=== PATIENT | male | born 1980 | race Hispanic/Latino ===

== ENCOUNTER 2018-07-20 23:13 | Emergency (ER) | payer BC ==
[~2018-07-20] VITALS: Ht 167.6 cm; Wt 99.3 kg
[2018-07-20] MEDS ORDERED: CLINDAMYCIN PHOS 900MG/ 50ML 50 ML IV SCH (23:45)
--- NOTE | 2018-07-21 01:43 | Diagnostic Imaging Report ---
EXAMINATION: CT of the neck with contrast HISTORY: Left neck pain behind the left ear. COMPARISON: None TECHNIQUE: Multidetector helical axial images were obtained from the sternal notch through the skull base during intravenous infusion of iodinated contrast material. Images were reconstructed using soft tissue and bone algorithms and were viewed in multiplanar format. Intravenous contrast: 100 mg Isovue-300.. Dose modulation, iterative reconstruction, and/or weight based adjustment of the mA/kV was utilized to reduce the radiation dose to as low as reasonably achievable. FINDINGS: Mass: None. Nodes: Mildly prominent multiple bilateral supra and infrahyoid neck lymph nodes, however no necrotic, calcified, cystic or enhancing surgical lymphadenopathy is seen. Sinuses: Opacification of the right maxillary sinus, likely related to retention cysts. Otherwise clear. Oral cavity: Unremarkable. Salivary glands: Parotid and submandibular glands unremarkable. Pharynx: Unremarkable. Larynx: Unremarkable. Thyroid gland: Unremarkable. Upper esophagus: Unremarkable. Blood vessels: Unremarkable. Bones: Unremarkable. IMPRESSION: 1. No neck mass, cyst or fluid collections. 2. Mildly prominent, nonspecific, likely reactive cervical lymph nodes. Signed by: Dr. Chichi Avitia M.D. on 07/21/2018 1:40 AM
--- NOTE | 2018-07-21 02:05 | Diagnostic Imaging Report ---
EXAM: CT Chest, Abdomen and Pelvis WITH contrast INDICATION: Pain behind left ear. Lump in back of head and neck. COMPARISON: None. TECHNIQUE: Chest, abdomen and pelvis were scanned utilizing a multidetector helical scanner from the lung apex to the pubic symphysis after administration of IV contrast. Coronal and sagittal reformations were obtained. Routine protocol was performed. Scan was performed when during portal venous phase. IV CONTRAST: 100 mL of Isovue-370 ORAL CONTRAST: Water COMPLICATIONS: None RADIATION DOSE: Total DLP: 836.02 mGy*cm Estimated effective dose: (DLP x 0.015 x size factor) mSv Dose modulation, iterative reconstruction, and/or weight based adjustment of the mA/kV was utilized to reduce the radiation dose to as low as reasonably achievable. FINDINGS: LINES and TUBES: None. LUNGS AND AIRWAYS: Right lower lobe 4 mm nodule (series 3 image 97). Airways are normal. PLEURA: The pleural spaces are clear. HEART AND MEDIASTINUM: The thyroid gland is normal. No mediastinal, hilar or axillary lymphadenopathy. The heart is normal in size.. There is no pericardial effusion. HEPATOBILIARY: No focal hepatic lesions. No biliary ductal dilation. GALLBLADDER: No radio-opaque stones or sludge. No wall thickening. SPLEEN: No splenomegaly. PANCREAS: No focal masses or ductal dilatation. ADRENALS: No adrenal nodules KIDNEYS/URETERS: Kidneys enhance symmetrically. No hydronephrosis. No cystic or solid mass lesions. No stones. GI TRACT: No abnormal distention, wall thickening, or evidence of bowel obstruction. Appendix is normal. PELVIC ORGANS/BLADDER: Unremarkable. LYMPH NODES: No lymphadenopathy. VESSELS: Unremarkable. PERITONEUM / RETROPERITONEUM: No free air or fluid. BONES: There are degenerative changes in the lumbar spine. SOFT TISSUES: Unremarkable. IMPRESSION: No acute abnormalities in the chest, abdomen, or pelvis. Signed by: DR. Jerod Raymundo MD on 07/21/2018 2:02 AM
[2018-07-21 06:50] VITALS: BP 154/88
== END 2018-07-21 02:20 | disposition home or self-care (01) ==
LOC: FSED 23:13
DX: L04.0 Acute lymphadenitis of face, head and neck (principal)
CPT/HCPCS: 70491; 71260; 74177; 80053; 85025; 99283

== ENCOUNTER → 2018-08-03 | Day surgery (SDC) | payer BC ==
[~2018-08-03] MED LIST: FENTANYL CITRATE/PF 100MCG/2 ML INJ ONE; GLUCAGON FOR INJ 1 MG VIAL ONE; HYOSCYAMINE SULFATE 0.5 MG/ML INJ ONE; KETAMINE HCL INJ 50 MG/ML 10 ML VIAL ONE; MIDAZOLAM HCL 2 MG/2 ML VIAL ONE; PROPOFOL IV EMULSION 10 MG/ML 50 ML VIAL ONE
--- OUTSIDE RECORDS SUMMARY | 2018-08-03 06:28 | XMS REPORT ---
Author Author 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 Allergies, Adverse Reactions, Alerts Allergy Name Allergy Type Status Severity Reaction(s) Onset Date Inactive Date Treating Clinician Comments No Known Allergies DA Active U 2018-07-21 00:00:00 No Known Allergies DA Active U 2013-11-19 00:00:00 Medications This patient has no known medications. Results Test Description Test Time Test Comments Text Results Atomic Results Result Comments PROCALCITONIN (PCT) 2018-07-24 11:20:00 PROCALCITONIN (PCT) (test code=PROCAL) < 0.05 ng/mL 0.00-0.05 PROCALCITONIN (PCT) NORMAL RANGE (ADULT): <0.05 NG/ML. * a concentration <0.5 ng/mL represents a low risk of severe sepsis and/or septic shock.* a concentration >2 ng/mL represents a high risk of severe sepsis and/or septic shock.Nevertheless, concentrations <0.5 ng/mL do not exclude aninfection, on account of localized infections (withoutsystemic signs) which can be associated with such lowconcentrations, or a systemic infection in its initialstages (< 6 hours). Furthermore, increased procalcitonincan occur without infection. PCT concentrations between 0.5and 2.0 ng/mL should be interpreted taking into account thepatient's history. It is recommended to retest PCT within6-24 hours if any concentrations <2 ng/mL are obtained. CBC W/AUTO [id number] 08:53:00* Test Item Value Reference Range Comments WHITE BLOOD CELL (test code=WBC) 14.68 x10 3/uL 4.5-11.0 RED BLOOD CELL (test code=RBC) 4.81 x10 6/uL 4.00-5.60 HEMOGLOBIN (test code=HGB) 13.2 g/dL 12.5-16.9 HEMATOCRIT (test code=HCT) 39.0 % 37.5-50.7 MEAN CELL VOLUME (test code=MCV) 81.1 fL 81.0-99.0 MEAN CELL HGB (test code=MCH) 27.4 pg 27.0-33.0 MEAN CELL HGB CONCETRATION (test code=MCHC) 33.8 g/dL 33.0-37.0 RED CELL DISTRIBUTION WIDTH CV (test code=RDW) 12.6 % 11.5-14.5 RED CELL DISTRIBUTION WIDTH SD (test code=RDW-SD) 37.4 fL 37.0-54.0 PLATELET COUNT (test code=PLT) 321 x10 3/uL 150-400 MEAN PLATELET VOLUME (test code=MPV) 10.8 fL 7.0-9.0 NEUTROPHIL % (test code=NT%) 79.3 % 56.0-77.0 IMMATURE GRANULOCYTE % (test code=IG%) 1.0 % 0.0-2.0 LYMPHOCYTE % (test code=LY%) 10.1 % 14.0-32.0 MONOCYTE % (test code=MO%) 9.3 % 4.8-9.0 EOSINOPHIL % (test code=EO%) 0.1 % 0.3-3.7 BASOPHIL % (test code=BA%) 0.2 % 0.0-2.0 NUCLEATED RBC % (test code=NRBC%) 0.0 % 0-0 NEUTROPHIL # (test code=NT#) 11.65 x10 3/uL 2.0-7.6 IMMATURE GRANULOCYTE # (test code=IG#) 0.14 x10 3/uL 0.00-0.03 LYMPHOCYTE # (test code=LY#) 1.49 x10 3/uL 1.0-3.8 MONOCYTE # (test code=MO#) 1.36 x10 3/uL 0.1-0.8 EOSINOPHIL # (test code=EO#) 0.01 x10 3/uL 0.0-0.2 BASOPHIL # (test code=BA#) 0.03 x10 3/uL 0.0-0.2 NUCLEATED RBC # (test code=NRBC#) 0.00 x10 3/uL 0.0-0.1 MANUAL DIFF REQUIRED (test code=MDIFF) NO BASIC METABOLIC [id number] 07:57:00* Test Item Value Reference Range Comments SODIUM (test code=NA) 139 mEq/L 134-147 POTASSIUM (test code=K) 3.8 mEq/L 3.4-5.0 CHLORIDE (test code=CL) 110 mEq/L 100-108 CARBON DIOXIDE (test code=CO2) 20 mEq/L 21-33 ANION GAP (test code=GAP) 13 0-20 GLUCOSE (test code=GLU) 127 mg/dL 70-110 BLOOD UREA NITROGEN (test code=BUN) 13 mg/dL 7-18 GLOMERULAR FILTRATION RATE (test code=GFR) 126.2 105-110 Units of measure=ml/min/1.73 m2 CREATININE (test code=CREAT) 0.7 mg/dL 0.6-1.3 CALCIUM (test code=CA) 8.3 mg/dL 8.0-10.5 PROCALCITONIN (PCT)2018-07-23 09:41:00* Test Item Value Reference Range Comments PROCALCITONIN (PCT) (test code=PROCAL) < 0.05 ng/mL 0.00-0.05 PROCALCITONIN (PCT) NORMAL RANGE (ADULT): <0.05 NG/ML. * a concentration <0.5 ng/mL represents a low risk of severe sepsis and/or septic shock.* a concentration >2 ng/mL represents a high risk of severe sepsis and/or septic shock.Nevertheless, concentrations <0.5 ng/mL do not exclude aninfection, on account of localized infections (withoutsystemic signs) which can be associated with such lowconcentrations, or a systemic infection in its initialstages (< 6 hours). Furthermore, increased procalcitonincan occur without infection. PCT concentrations between 0.5and 2.0 ng/mL should be interpreted taking into account thepatient's history. It is recommended to retest PCT within6-24 hours if any concentrations <2 ng/mL are obtained. COMPREHENSIVE METABOLIC [id number] 06:52:00* Test Item Value Reference Range Comments SODIUM (test code=NA) 138 mEq/L 134-147 POTASSIUM (test code=K) 4.1 mEq/L 3.4-5.0 CHLORIDE (test code=CL) 108 mEq/L 100-108 CARBON DIOXIDE (test code=CO2) 24 mEq/L 21-33 ANION GAP (test code=GAP) 10 0-20 GLUCOSE (test code=GLU) 166 mg/dL 70-110 BLOOD UREA NITROGEN (test code=BUN) 11 mg/dL 7-18 GLOMERULAR FILTRATION RATE (test code=GFR) 94.4 105-110 Units of measure=ml/min/1.73 m2 CREATININE (test code=CREAT) 0.9 mg/dL 0.6-1.3 TOTAL PROTEIN (test code=PROT) 7.7 g/dL 6.4-8.2 ALBUMIN (test code=ALB) 3.80 g/dL 3.4-5.0 CALCIUM (test code=CA) 8.8 mg/dL 8.0-10.5 BILIRUBIN TOTAL (test code=BILT) 0.50 mg/dL 0.0-1.0 SGOT/AST (test code=AST) 17 IUnit/L 15-37 SGPT/ALT (test code=ALT) 20 IUnit/L 15-65 ALKALINE PHOSPHATASE TOTAL (test code=ALKP) 93 IUnit/L 20-125 LIPID PROFILE (CORONARY RISK)2018-07-23 06:52:00* Test Item Value Reference Range Comments TRIGLYCERIDES (test code=TRIG) 73 mg/dL 40-150 CHOLESTEROL (test code=CHOL) 173 mg/dL <200 CHOLESTEROL/HDL RATIO (test code=CHOLHDL) 3.04 RATIO 3.43-4.97 RISK ASSOCIATED WITH CHOL/HDL RATIOS: RISK MALE FEMALE1/2 AVERAGE 3.43 3.27AVERAGE 4.97 4.442X AVERAGE 9.55 7.053X AVERAGE 23.39 11.04 NOTE THAT THE REFERENCE VALUE IS RELATEDTO RISK LEVELS RECOMMENDED BY THE NATL.HEART, LUNG, AND BLOOD INST. HDL CHOLESTEROL (test code=HDL) 57.0 mg/dL 32-72 LIPOPROTEIN LDL (test code=LDL) 95 mg/dL 0-100 <100 [id number] NEAR OPTIMAL/ABOVE [id number] HIGH>MO=567 VERY HIGH*Guidelines provided by the National Cholesterol EducationProgram Adult Treatment Panel III [id number] 06:52:00* Test Item Value Reference Range Comments MAGNESIUM (test code=MAG) 2.00 mg/dL 1.8-2.4 PROTHROMBIN [id number] 05:53:00* Test Item Value Reference Range Comments PROTHROMBIN TIME PATIENT (test code=PTP) 13.0 SECONDS 9.3-12.9 INTERNATIONAL NORMAL RATIO (test code=INR) 1.2 0.8-1.2 TARGET INR BY INDICATION Indication INR1. Prophylaxis of venous thrombosis 2.0 - 3.0 (orthopedic surgery), Prophylaxis of venous thrombosis (other than high-risk surgery), Treatment of Deep Vein Thrombosis/Pulmonary Embolism, Prevention of systemic embolism - Tissue heart valves, Acute Myocardial Infarction (to prevent systemic embolism), Valvular heart disease, Atrial Fibrillation, Bileaflet mechanical valve in aortic position.2. Mechanical prosthetic valves (high risk), 2.5 - 3.5 Presence of Lupus Anticoagulant or Antiphospholipid Antibodies, Prevention of systemic embolism - Acute Myocardial Infarction (to prevent recurrent infarct). CBC W/AUTO [id number] 05:52:00* Test Item Value Reference Range Comments WHITE BLOOD CELL (test code=WBC) 8.85 x10 3/uL 4.5-11.0 RED BLOOD CELL (test code=RBC) 5.00 x10 6/uL 4.00-5.60 HEMOGLOBIN (test code=HGB) 13.9 g/dL 12.5-16.9 HEMATOCRIT (test code=HCT) 42.3 % 37.5-50.7 MEAN CELL VOLUME (test code=MCV) 84.6 fL 81.0-99.0 MEAN CELL HGB (test code=MCH) 27.8 pg 27.0-33.0 MEAN CELL HGB CONCETRATION (test code=MCHC) 32.9 g/dL 33.0-37.0 RED CELL DISTRIBUTION WIDTH CV (test code=RDW) 13.0 % 11.5-14.5 RED CELL DISTRIBUTION WIDTH SD (test code=RDW-SD) 39.8 fL 37.0-54.0 PLATELET COUNT (test code=PLT) 248 x10 3/uL 150-400 MEAN PLATELET VOLUME (test code=MPV) 10.3 fL 7.0-9.0 NEUTROPHIL % (test code=NT%) 86.7 % 56.0-77.0 IMMATURE GRANULOCYTE % (test code=IG%) 1.2 % 0.0-2.0 LYMPHOCYTE % (test code=LY%) 9.5 % 14.0-32.0 MONOCYTE % (test code=MO%) 2.4 % 4.8-9.0 EOSINOPHIL % (test code=EO%) 0.1 % 0.3-3.7 BASOPHIL % (test code=BA%) 0.1 % 0.0-2.0 NUCLEATED RBC % (test code=NRBC%) 0.0 % 0-0 NEUTROPHIL # (test code=NT#) 7.67 x10 3/uL 2.0-7.6 IMMATURE GRANULOCYTE # (test code=IG#) 0.11 x10 3/uL 0.00-0.03 LYMPHOCYTE # (test code=LY#) 0.84 x10 3/uL 1.0-3.8 MONOCYTE # (test code=MO#) 0.21 x10 3/uL 0.1-0.8 EOSINOPHIL # (test code=EO#) 0.01 x10 3/uL 0.0-0.2 BASOPHIL # (test code=BA#) 0.01 x10 3/uL 0.0-0.2 NUCLEATED RBC # (test code=NRBC#) 0.00 x10 3/uL 0.0-0.1 MANUAL DIFF REQUIRED (test code=MDIFF) NO PROCALCITONIN (PCT)2018-07-22 18:08:00* Test Item Value Reference Range Comments PROCALCITONIN (PCT) (test code=PROCAL) < 0.05 ng/mL 0.00-0.05 PROCALCITONIN (PCT) NORMAL RANGE (ADULT): <0.05 NG/ML. * a concentration <0.5 ng/mL represents a low risk of severe sepsis and/or septic shock.* a concentration >2 ng/mL represents a high risk of severe sepsis and/or septic shock.Nevertheless, concentrations <0.5 ng/mL do not exclude aninfection, on account of localized infections (withoutsystemic signs) which can be associated with such lowconcentrations, or a systemic infection in its initialstages (< 6 hours). Furthermore, increased procalcitonincan occur without infection. PCT concentrations between 0.5and 2.0 ng/mL should be interpreted taking into account thepatient's history. It is recommended to retest PCT within6-24 hours if any concentrations <2 ng/mL are obtained. HGBA1C%2018-07-22 15:24:00* Test Item Value Reference Range Comments HGBA1C% (test code=HGBA1C%) 5.7 %A1C 4.8-6.0 T4 [id number] 15:11:00* Test Item Value Reference Range Comments T4 FREE (test code=T4F) 1.0 ng/dL 0.77-1.61 THYROID STIMULATING [id number] 15:11:00* Test Item Value Reference Range Comments THYROID STIMULATING HORMONE (test code=TSH) 3.38 0.42-5.47 Results in zen-International Units/mL COMPREHENSIVE METABOLIC [id number] 15:00:00* Test Item Value Reference Range Comments SODIUM (test code=NA) 137 mEq/L 134-147 POTASSIUM (test code=K) 3.8 mEq/L 3.4-5.0 CHLORIDE (test code=CL) 104 mEq/L 100-108 CARBON DIOXIDE (test code=CO2) 29 mEq/L 21-33 ANION GAP (test code=GAP) 8 0-20 GLUCOSE (test code=GLU) 120 mg/dL 70-110 BLOOD UREA NITROGEN (test code=BUN) 10 mg/dL 7-18 GLOMERULAR FILTRATION RATE (test code=GFR) 108.2 105-110 Units of measure=ml/min/1.73 m2 CREATININE (test code=CREAT) 0.8 mg/dL 0.6-1.3 TOTAL PROTEIN (test code=PROT) 7.3 g/dL 6.4-8.2 ALBUMIN (test code=ALB) 3.70 g/dL 3.4-5.0 CALCIUM (test code=CA) 8.4 mg/dL 8.0-10.5 BILIRUBIN TOTAL (test code=BILT) 0.60 mg/dL 0.0-1.0 SGOT/AST (test code=AST) 13 IUnit/L 15-37 SGPT/ALT (test code=ALT) 22 IUnit/L 15-65 ALKALINE PHOSPHATASE TOTAL (test code=ALKP) 93 IUnit/L 20-125 COMPREHENSIVE METABOLIC [id number] 14:58:00* Test Item Value Reference Range Comments SODIUM (test code=NA) 137 mEq/L 134-147 POTASSIUM (test code=K) 3.8 mEq/L 3.4-5.0 CHLORIDE (test code=CL) 104 mEq/L 100-108 CARBON DIOXIDE (test code=CO2) 29 mEq/L 21-33 ANION GAP (test code=GAP) 8 0-20 GLUCOSE (test code=GLU) 120 mg/dL 70-110 BLOOD UREA NITROGEN (test code=BUN) 10 mg/dL 7-18 GLOMERULAR FILTRATION RATE (test code=GFR) 108.2 105-110 Units of measure=ml/min/1.73 m2 CREATININE (test code=CREAT) 0.8 mg/dL 0.6-1.3 TOTAL PROTEIN (test code=PROT) g/dL 6.4-8.2 ALBUMIN (test code=ALB) 3.70 g/dL 3.4-5.0 CALCIUM (test code=CA) 8.4 mg/dL 8.0-10.5 BILIRUBIN TOTAL (test code=BILT) mg/dL 0.0-1.0 SGOT/AST (test code=AST) 13 IUnit/L 15-37 SGPT/ALT (test code=ALT) 22 IUnit/L 15-65 ALKALINE PHOSPHATASE TOTAL (test code=ALKP) IUnit/L 20-125 CBC W/AUTO [id number] 14:49:00* Test Item Value Reference Range Comments WHITE BLOOD CELL (test code=WBC) 9.16 x10 3/uL 4.5-11.0 RED BLOOD CELL (test code=RBC) 5.25 x10 6/uL 4.00-5.60 HEMOGLOBIN (test code=HGB) 14.4 g/dL 12.5-16.9 HEMATOCRIT (test code=HCT) 43.2 % 37.5-50.7 MEAN CELL VOLUME (test code=MCV) 82.3 fL 81.0-99.0 MEAN CELL HGB (test code=MCH) 27.4 pg 27.0-33.0 MEAN CELL HGB CONCETRATION (test code=MCHC) 33.3 g/dL 33.0-37.0 RED CELL DISTRIBUTION WIDTH CV (test code=RDW) 12.7 % 11.5-14.5 RED CELL DISTRIBUTION WIDTH SD (test code=RDW-SD) 38.5 fL 37.0-54.0 PLATELET COUNT (test code=PLT) 234 x10 3/uL 150-400 MEAN PLATELET VOLUME (test code=MPV) 10.2 fL 7.0-9.0 NEUTROPHIL % (test code=NT%) 76.1 % 56.0-77.0 IMMATURE GRANULOCYTE % (test code=IG%) 0.5 % 0.0-2.0 LYMPHOCYTE % (test code=LY%) 10.7 % 14.0-32.0 MONOCYTE % (test code=MO%) 12.4 % 4.8-9.0 EOSINOPHIL % (test code=EO%) 0.1 % 0.3-3.7 BASOPHIL % (test code=BA%) 0.2 % 0.0-2.0 NUCLEATED RBC % (test code=NRBC%) 0.0 % 0-0 NEUTROPHIL # (test code=NT#) 6.96 x10 3/uL 2.0-7.6 IMMATURE GRANULOCYTE # (test code=IG#) 0.05 x10 3/uL 0.00-0.03 LYMPHOCYTE # (test code=LY#) 0.98 x10 3/uL 1.0-3.8 MONOCYTE # (test code=MO#) 1.14 x10 3/uL 0.1-0.8 EOSINOPHIL # (test code=EO#) 0.01 x10 3/uL 0.0-0.2 BASOPHIL # (test code=BA#) 0.02 x10 3/uL 0.0-0.2 NUCLEATED RBC # (test code=NRBC#) 0.00 x10 3/uL 0.0-0.1 MANUAL DIFF REQUIRED (test code=MDIFF) NO - CT NECK [id number] 14:08:00 Name: JERICHO HOLLAND III [facility] : 1980 Age/S: 38 / M [address] [place] [address] Unit #: [id number] Loc: [place] [address] Phys: Faith Juárez [employer]OR [employer]CH[employer]IC Acct: [id number] Dis Date: Status: REG ER PHONE #: [phone] Exam Date: 07/21/2018 1354 FAX #: [phone] Reason: L PAROTID GLAND SWELLING/PAIN EXAMS: CPT CODE: [id number] CT NECK W/CONTRAST 09658 Clinical Indication: Left parotid swelling. Comparison: None Technique: CT of the neck is performed with a multidetector CT. Axial, coronal and sagittal reconstructions were obtained. CONTRAST: 100 cc of IV Omnipaque 300 contrast material was used for the exam. CT Radiation Dose DLP: 343 mGy-cm. DLP means Dose Length Product, a radiation dose metric that does not report individual patient dose, but is a reference value related to the radiation output of the scanner used for this exam. FINDINGS: SOFT TISSUES: Mild asymmetric skin thickening and swelling of the left periauricular soft tissues, inferior left outer ear, without wall fluid collection. The right and left external auditory canal are unremarkable. LYMPH NODES: Increased number of small lymph nodes in the lateral neck, without necrosis or obliteration. AERODIGESTIVE TRACT: The nasopharynx and oropharynx are clear. The vocal cords, supraglottic and infraglottic airway is unremarkable. The parapharyngeal space, and retropharyngeal space are normal. The valleculae and piriform sinuses are symmetric. The epiglottis and uvula are normal. SALIVARY GLANDS: The submandibular and parotid glands are symmetric in size. The parotid gland contains small intrapar otid lymph nodes THYROID GLANDS: The thyroid lobes are symmetric a nd there are no lesions. VASCULAR STRUCTURES: The jugular v eins and carotid vessels are unremarkable. OSSEOUS STRUCTUR ES: There are no acute fractures or dislocations. PAGE 1 Signed Report (CONTINUED) Name: JERICHO HOLLAND III [facility] : 1980 e/S: 38 / M [address] [place] [address] Unit #: [id number] Loc: [place] [address] Phys: Faith Juárez Acct: [id number] Dis Date: Status: REG ER PHONE #: [phone] Exam Date: 07/21/2018 1354 FAX #: [phone] Reason: L PAROTID GLAND SWELLING/PAIN EXAMS: CPT CODE: [id number] CT NECK W/CONTRAST 50241 <Continued> VISUALIZED LUNG APICES: There are no pulmonary masses or consolidation. PARANASAL SINUSES AND MASTOID AIR cells: Mucosal retention cyst in the right maxillary sinus. No significant mucosal thickening or fluid level. Clear mastoid air cells. If there is further concern for neck masses or malignancy, PET/CT imaging or MRI of the neck should be performed for complete assessment. IMPRESSION: 1. Swelling and thickening of the left the left periauricular soft tissues and outer ear, possibly infectious/cellulitis. 2. No soft tissue abscess, or abnormal enlargement of the parotid gland to suggest parotiditis. 3. Increased number of small lymph nodes in the right and left lateral neck is nonspecific SL: [id number] at 1408 Reported and signed by: Sonny Mixon M.D. CC: Faith Juárez Technologist:Sandra Nunez RT(R)(CT) CTDI: DLP: Trnscb Date/Time: 07/21/2018 (0455) [id number] Orig Print D/T: S: 07/21/2018 (2344) CTDI: DLP: PAGE 2 Signed Report - XR CHEST 1 [id number] 14:03:00 FAX: Faith Juárez [phone] [place]: St: REG Name: Adi MARTELJERICHO ROMMEL [facility] : [birth year] Age/S: 38/M [address] [place] [address] Unit #: [id number] Loc: [place] [address] Phys: Faith Juárez Acct: [id number] Dis Date: Status: REG ER PHONE #: [phone] Exam Date: 07/21/2018 1351 FAX #: [phone] Reason: SEPSIS PROTOCOL EXAMS: CPT CODE: [id number] XR CHEST 1 V 70684 1 PA VIEW CXR HISTORY: Sepsis protocol. Left neck and ear swelling. COMPARISON: 11/19/2013 chest x-ray. The lungs are clear with normal pulmonary vasculature. Cardiomediastinal silhouette normal. No pleural abnormali ty. Bony thorax intact. IMPRESSION: Nor mal exam. END OF IMPRESSION SL: [id number] Electronically Signed by Abdon Wells on at 1403 Reported and signed by: Yandel Wells M.D. CC: Faith Juárez Technologist: DAMIAN Kruse(R) Trnscrd Date/Time/By: 07/21/2018 (2763) : By: NurysRTB Orig Print D/T: S: 07/21/2018 (5991) PAGE 1 Signed Report PROCALCITONIN (PCT)2018-07-21 13:57:00* Test Item Value Reference Range Comments PROCALCITONIN (PCT) (test code=PROCAL) < 0.05 ng/mL 0.00-0.05 PROCALCITONIN (PCT) NORMAL RANGE (ADULT): <0.05 NG/ML. * a concentration <0.5 ng/mL represents a low risk of severe sepsis and/or septic shock.* a concentration >2 ng/mL represents a high risk of severe sepsis and/or septic shock.Nevertheless, concentrations <0.5 ng/mL do not exclude aninfection, on account of localized infections (withoutsystemic signs) which can be associated with such lowconcentrations, or a systemic infection in its initialstages (< 6 hours). Furthermore, increased procalcitonincan occur without infection. PCT concentrations between 0.5and 2.0 ng/mL should be interpreted taking into account thepatient's history. It is recommended to retest PCT within6-24 hours if any concentrations <2 ng/mL are obtained. COMPREHENSIVE METABOLIC [id number] 13:47:00* Test Item Value Reference Range Comments SODIUM (test code=NA) 137 mEq/L 134-147 POTASSIUM (test code=K) 3.5 mEq/L 3.4-5.0 CHLORIDE (test code=CL) 104 mEq/L 100-108 CARBON DIOXIDE (test code=CO2) 25 mEq/L 21-33 ANION GAP (test code=GAP) 12 0-20 GLUCOSE (test code=GLU) 103 mg/dL 70-110 BLOOD UREA NITROGEN (test code=BUN) 9 mg/dL 7-18 GLOMERULAR FILTRATION RATE (test code=GFR) 83.6 105-110 Units of measure=ml/min/1.73 m2 CREATININE (test code=CREAT) 1.0 mg/dL 0.6-1.3 TOTAL PROTEIN (test code=PROT) 7.6 g/dL 6.4-8.2 ALBUMIN (test code=ALB) 4.00 g/dL 3.4-5.0 CALCIUM (test code=CA) 8.5 mg/dL 8.0-10.5 BILIRUBIN TOTAL (test code=BILT) 0.60 mg/dL 0.0-1.0 SGOT/AST (test code=AST) 12 IUnit/L 15-37 SGPT/ALT (test code=ALT) 23 IUnit/L 15-65 ALKALINE PHOSPHATASE TOTAL (test code=ALKP) 95 IUnit/L 20-125 BILIRUBIN [id number] 13:47:00* Test Item Value Reference Range Comments BILIRUBIN DIRECT (test code=BILD) 0.20 MG/DL 0.0-0.30 [id number] 13:47:00* Test Item Value Reference Range Comments TROPONIN-I (test code=TROPI) < 0.015 ng/mL 0.000-0.045 Negative: <=0.045 Positive: >=0.046 Correlation with serial results, other cardiac markers andclinical findings is necessary to determine the clinicalsignificance of this result. Results using different methodologies should not be comparedto one another as quantitative results may vary by method. URINALYSIS [id number] 13:26:00* Test Item Value Reference Range Comments UA COLOR (test code=COLU) YELLOW YEL/STRAW UA APPEARANCE (test code=APPU) CLEAR CLEAR UA GLUCOSE DIPSTICK (test code=DGLUU) NEGATIVE NEGATIVE UA BILIRUBIN DIPSTICK (test code=BILU) NEGATIVE NEGATIVE UA KETONE DIPSTICK (test code=KETU) NEGATIVE NEGATIVE UA SPECIFIC GRAVITY (test code=SGU) 1.025 1.005-1.030 UA BLOOD DIPSTICK (test code=MACRINA) 2+ NEGATIVE UA PH DIPSTICK (test code=KOBE) 5.0 5.0-7.0 UA PROTEIN DIPSTICK (test code=PROU) NEGATIVE NEGATIVE UA UROBILINIOGEN DIPSTICK (test code=URO) 0.2 mg/dL 0.2-1.0 UA NITRITE DIPSTICK (test code=KATTY) NEGATIVE NEGATIVE UA LEUKOCYTE ESTERASE DIPSTICK (test code=LEUU) NEGATIVE NEGATIVE UA WBC (test code=WBCU) 0-3 WBC/HPF 0-3 UA RBC (test code=RBCU) 0-3 RBC/HPF 0-3 UA BACTERIA (test code=BACU) NONE SEEN /HPF NONE SEEN UA SQUAMOUS CELLS (test code=SQU) 0-5 /HPF NONE SEEN UA MUCUS (test code=MUCU) 2+ /LPF NONE SEEN COMMENTS: Clean CatchUA CULT [id number] 13:26:00* Test Item Value Reference Range Comments UA CULTURE NEEDED? (test code=UACULT) NO, WBC<10 Criteria Culture Chk Criteria not met, Urine Culture cancelled. COMMENTS: Clean CatchCBC W/AUTO [id number] 13:24:00* Test Item Value Reference Range Comments WHITE BLOOD CELL (test code=WBC) 9.05 x10 3/uL 4.5-11.0 RED BLOOD CELL (test code=RBC) 5.19 x10 6/uL 4.00-5.60 HEMOGLOBIN (test code=HGB) 14.5 g/dL 12.5-16.9 HEMATOCRIT (test code=HCT) 43.5 % 37.5-50.7 MEAN CELL VOLUME (test code=MCV) 83.8 fL 81.0-99.0 MEAN CELL HGB (test code=MCH) 27.9 pg 27.0-33.0 MEAN CELL HGB CONCETRATION (test code=MCHC) 33.3 g/dL 33.0-37.0 RED CELL DISTRIBUTION WIDTH CV (test code=RDW) 12.7 % 11.5-14.5 RED CELL DISTRIBUTION WIDTH SD (test code=RDW-SD) 38.5 fL 37.0-54.0 PLATELET COUNT (test code=PLT) 241 x10 3/uL 150-400 MEAN PLATELET VOLUME (test code=MPV) 9.9 fL 7.0-9.0 NEUTROPHIL % (test code=NT%) 82.5 % 56.0-77.0 IMMATURE GRANULOCYTE % (test code=IG%) 0.3 % 0.0-2.0 LYMPHOCYTE % (test code=LY%) 8.4 % 14.0-32.0 MONOCYTE % (test code=MO%) 8.6 % 4.8-9.0 EOSINOPHIL % (test code=EO%) 0.1 % 0.3-3.7 BASOPHIL % (test code=BA%) 0.1 % 0.0-2.0 NUCLEATED RBC % (test code=NRBC%) 0.0 % 0-0 NEUTROPHIL # (test code=NT#) 7.46 x10 3/uL 2.0-7.6 IMMATURE GRANULOCYTE # (test code=IG#) 0.03 x10 3/uL 0.00-0.03 LYMPHOCYTE # (test code=LY#) 0.76 x10 3/uL 1.0-3.8 MONOCYTE # (test code=MO#) 0.78 x10 3/uL 0.1-0.8 EOSINOPHIL # (test code=EO#) 0.01 x10 3/uL 0.0-0.2 BASOPHIL # (test code=BA#) 0.01 x10 3/uL 0.0-0.2 NUCLEATED RBC # (test code=NRBC#) 0.00 x10 3/uL 0.0-0.1 MANUAL DIFF REQUIRED (test code=MDIFF) NO LACTIC ACID [id number] 13:09:00* Test Item Value Reference Range Comments LACTIC ACID POC (test code=LACTP) 1.3 MMOL/L 0.90-1.70 Performed by certified steam conditioning operator at [facility] Ctr CT ABD/PEL WITH [id number] 01:55:00 [place] [id number] Patient Name: JERICHO HOLLAND III MR #: [id number] : 1980 Age/Sex: 38/M Req #: [id number] Adm Physician: Ordered by: NICOLE OGDEN MD Report #: [id number] Location: [facility] Room/Bed: Procedure: 0330-001 0 HOPD/CT ABD/PEL WITH CONTRAST-HOPD Exam Date: 07/21/18 Exam Time: 0100 REPORT STATUS: Signed EXAM: CT Chest, Abdomen and Pelvis WITH contrast INDICATION: Pain behind left ear. Lump in back of head and neck. COMPARISON: None. TECH NIQUE: Chest, abdomen and pelvis were scanned utilizing a multidetector helica l scanner from the lung apex to the pubic symphysis after administration of IV contrast. Coronal and sagittal reformations were obtained. Routine protocol w as performed. Scan was performed when during portal venous phase. IV CONT RAST: 100 mL of Isovue-370 ORAL CONTRAST: Water COMPLICA TIONS: None RADIATION DOSE: Total DLP: 836.02 mGy*cm Estimate d effective dose: (DLP x 0.015 x size factor) mSv Dose modulation, iterat humberto reconstruction, and/or weight based adjustment of the mA/kV was utilized t o reduce the radiation dose to as low as reasonably achievable. FINDINGS : LINES and TUBES: None. LUNGS AND AIRWAYS: Right lower lobe 4 mm nod ule (series 3 image 97). Airways are normal. PLEURA: The pleural spaces are clear. HEART AND MEDIASTINUM: The thyroid gland is normal. No mediasti nal, hilar or axillary lymphadenopathy. The heart is normal in size.. There i s no pericardial effusion. HEPATOBILIARY: No focal hepatic lesi ons. No biliary ductal dilation. GALLBLADDER: No radio-opaque stones or s ludge. No wall thickening. SPLEEN: No splenomegaly. PANCREAS: No foc al masses or ductal dilatation. ADRENALS: No adrenal nodules KID NEYS/URETERS: Kidneys enhance symmetrically. No hydronephrosis. No cystic or solid mass lesions. No stones. GI TRACT: No abnormal distention, wall thic kening, or evidence of bowel obstruction. Appendix is normal. PELVI C ORGANS/BLADDER: Unremarkable. LYMPH NODES: No lymphadenopathy. VESSE LS: Unremarkable. PERITONEUM / RETROPERITONEUM: No free air or fluid. BONES: There are degenerative changes in the lumbar spine. SOFT TISSUES: Un remarkable. IMPRESSION: No acute abnormalities in the chest, abdomen, or pelvis. Signed by: DR. Jerod Ferris MD on 07/21/2018 2:02 AM Dictated By: JEROD FERRIS MD 1 Transcribed By: TAMIKA on 07/21/18201 COPY TO: NICOLE ARAGON MD CT CHEST WITH [id number] 01:55:00 [place] [id number] Patient Name: JERICHO HOLLAND III MR #: [id number] : 1980 Age/Sex: 38/M Req #: [id number] Adm Physician: Ordered by: NICOLE OGDEN MD Report #: [id number] Location: [facility] Room/Bed: Procedure: 0330-001 2 HOPD/CT CHEST WITH CONTRAST-HOPD Exam Date: 07/21/18 Exam Time: 0100 REPORT STATUS: S igned EXAM: CT Chest, Abdomen and Pelvis WITH contrast INDICATION: Pain b ehind left ear. Lump in back of head and neck. COMPARISON: None. TECHNI QUE: Chest, abdomen and pelvis were scanned utilizing a multidetector helical scanner from the lung apex to the pubic symphysis after administration of IV c ontrast. Coronal and sagittal reformations were obtained. Routine protocol was performed. Scan was performed when during portal venous phase. IV CONTRA ST: 100 mL of Isovue-370 ORAL CONTRAST: Water COMPLICATI ONS: None RADIATION DOSE: Total DLP: 836.02 mGy*cm Estimated effective dose: (DLP x 0.015 x size factor) mSv Dose modulation, iterativ e reconstruction, and/or weight based adjustment of the mA/kV was utilized to reduce the radiation dose to as low as reasonably achievable. FINDINGS: LINES and TUBES: None. LUNGS AND AIRWAYS: Right lower lobe 4 mm nodule (series 3 image 97). Airways are normal. PLEURA: The pleural spaces are clear. HEART AND MEDIASTINUM: The thyroid gland is normal. No mediastinal, hilar or axillary lymphadenopathy. The heart is normal in size.. There is no pericardial effusion. HEPATOBILIARY: No focal hepatic lesions. No biliary ductal dilation. GALLBLADDER: No radio-opaque stones or sludge. No wall thickening. SPLEEN: No splenomegaly. PANCREAS: No focal masses or ductal dilatation. ADRENALS: No adrenal nodules KIDNE YS/URETERS: Kidneys enhance symmetrically. No hydronephrosis. No cystic or so lid mass lesions. No stones. GI TRACT: No abnormal distention, wall thicke abbey, or evidence of bowel obstruction. Appendix is normal. PELVIC ORGANS/BLADDER: Unremarkable. LYMPH NODES: No lymphadenopathy. VESSELS : Unremarkable. PERITONEUM / RETROPERITONEUM: No free air or fluid. CLYDE PATT: There are degenerative changes in the lumbar spine. SOFT TISSUES: Unre markable. IMPRESSION: No acute abnormalities in the chest, a bdomen, or pelvis. Signed by: DR. Jerod Ferris MD on 07/21/2018 2:02 AM Dictated By: JEROD FERRIS MD 1 Transcribed By: TAMIKA on 07/21/18201 COPY TO: NICOLE BARBOZA MD CT SOFT TISSUE NEXK [id number] 01:33:00 [place] [address] Patient Name: JERICHO HOLLAND III MR #: [id number] : 1980 Age/Sex: 38/M Req #: [id number] Adm Physician: Ordered by: NICOLE OGDEN MD Report #: [id number] Location: [facility] Room/Bed: Procedure: 0330-001 1 HOPD/CT SOFT TISSUE NEXK WITH-HOPD Exam Date: 07/21/18 Exam Time: 0100 REPORT STATUS: Signed EXAMINATION: CT of the neck with contrast HISTORY: Left neck pain behind the left ear. COMPARISON: None TECHNIQUE: Multidetector he lical axial images were obtained from the sternal notch through the skull bas e during intravenous infusion of iodinated contrast material. Images were rec onstructed using soft tissue and bone algorithms and were viewed in multiplana r format. Intravenous contrast: 100 mg Isovue-300.. Dose modulation, it erative reconstruction, and/or weight based adjustment of the mA/kV was utiliz ed to reduce the radiation dose to as low as reasonably achievable. FI NDINGS: Mass: None. Nodes: Mildly prominent multiple bilateral supra and infrahyoid neck lymph nodes, however no necrotic, calcified, cystic or enhancing surgical lymphadenopathy is seen. Sinuses: Opacification of the right maxillary sinus, likely related to retention cysts. Otherwise john ar. Oral cavity: Unremarkable. Salivary glands: Parotid and sub mandibular glands unremarkable. Pharynx: Unremarkable. La rynx: Unremarkable. Thyroid gland: Unremarkable. Upper esopha carlos: Unremarkable. Blood vessels: Unremarkable. Bones: Unrem arkable. IMPRESSION: 1. No neck mass, cyst or fluid collections. 2. Mildly prominent, nonspecific, likely reactive cervical lymph nodes. Si gned by: Dr. Aureliano Avitia M.D. on 07/21/2018 1:40 AM Dictated By: AURELIANO CASTELLON MD 014 Transcribed B y: TAMIKA on 07/21/18139 COPY TO: NICOLE OGDEN MD
[2018-08-03 09:00] VITALS: BP 134/98
--- NOTE | 2018-08-03 15:03 | Operative Report ---
DATE OF PROCEDURE: 08/03/2018 SURGEON: Dylon Guardado MD PROCEDURE: Colonoscopy with biopsies. INDICATION FOR PROCEDURE: New onset constipation, rectal bleeding. MEDICATIONS: The patient was done under MAC, please see anesthesiologist's note. PROCEDURE IN DETAIL: With the patient in left lateral decubitus position, a flexible fiberoptic Olympus colonoscope was inserted into the rectum with ease and advanced all the way to the cecum. Mucosa overlying the cecum appeared to be within normal limits. The scope was then withdrawn slowly and mucosa overlying the ascending, transverse, and descending other than for scattered diverticular disease appeared to be within normal limits. Diverticular disease was also noted to involve the sigmoid colon. Mucosa overlying the sigmoid and the rectum revealed some patchy intense erythema, low-grade edema and biopsies were obtained. The scope was then retroflexed into the distal rectum and moderate-sized internal hemorrhoids were noted, none of which was actively bleeding. The scope was then straightened out, it was subsequently withdrawn. The patient tolerated procedure well. IMPRESSION: 1. Diverticulosis. 2. Proctosigmoiditis, mild. 3. Internal hemorrhoids, none actively bleeding. PLAN: Follow up histology. Initiate high-fiber, low-fat diet. Initiate high-fiber supplement. Start Anusol-HC suppositories b.i.d. x10 days and p.r.n., Linzess 145 mcg one p.o. q.a.m. a.c. Check TSH. The patient might benefit from a followup colonoscopy in 10 years. Dylon Guardado MD [facility] [place] /[id number] cc: Arabella García MD
== END | disposition home or self-care (01) ==
LOC: OR 06:25
PROVIDERS: ATTEND Internal Medicine Gastroenterology
DX: K63.89 Other specified diseases of intestine (principal); K57.30 Diverticulosis of large intestine without perforation or abscess without bleeding; K59.00 Constipation, unspecified; K64.8 Other hemorrhoids; R03.0 Elevated blood-pressure reading, without diagnosis of hypertension; Z68.34 Body mass index [BMI] 34.0-34.9, adult; Z80.0 Family history of malignant neoplasm of digestive organs
CPT/HCPCS: 36415; 45380; 84443; J1610; J1980; J2250; J2704

== ENCOUNTER → 2020-04-27 | Outpatient (CLI) | payer OTHER ==
[~2020-04-27] MED LIST changes: +COVID-19 VACC, MRNA(MODERNA)/PF 100 MCG/0.5 ML VIAL IM ONE; -FENTANYL CITRATE/PF 100MCG/2 ML INJ ONE; -GLUCAGON FOR INJ 1 MG VIAL ONE; -HYOSCYAMINE SULFATE 0.5 MG/ML INJ ONE; -KETAMINE HCL INJ 50 MG/ML 10 ML VIAL ONE; -MIDAZOLAM HCL 2 MG/2 ML VIAL ONE; -PROPOFOL IV EMULSION 10 MG/ML 50 ML VIAL ONE
== END | disposition home or self-care (01) ==
LOC: VACCPMC 17:00
DX: Z23 Encounter for immunization (principal); Z20.822 Contact with and (suspected) exposure to COVID-19

== ENCOUNTER → 2020-05-25 | Outpatient (CLI) | payer OTHER | END | DRG 951 | LOC: VACCPMC 11:15 | DX: Z23 Encounter for immunization (principal); Z20.822 Contact with and (suspected) exposure to COVID-19 | CPT/HCPCS: 0012A; 91301 ==

== ENCOUNTER 2020-06-21 15:20 | Emergency (ER) | payer BC, OTHER ==
[~2020-06-21] VITALS: Ht 167.6 cm; Wt 99.3 kg
[2020-06-21] MEDS ORDERED: KETOROLAC TROMETHAMINE 60 MG/2 ML VIAL IM ONE (15:45)
[2020-06-21] MEDS ORDERED: HYDROCODONE/APAP 5MG-325MG TAB PO ONE (15:45)
[2020-06-21 18:57] VITALS: BP 124/86
== END 2020-06-21 18:58 | disposition home or self-care (01) ==
LOC: ER 15:32
DX: R07.89 Other chest pain (principal); S20.212A Contusion of left front wall of thorax, initial encounter; V43.52XA Car driver injured in collision with other type car in traffic accident, initial encounter; Y92.488 Other paved roadways as the place of occurrence of the external cause; Y99.0 Civilian activity done for income or pay
CPT/HCPCS: 71101; 99284; J1885

== ENCOUNTER → 2021-11-03 | Outpatient (CLI) | payer BC | LOC: SLEEP 19:58 | PROVIDERS: ATTEND Internal Medicine | DX: G47.33 Obstructive sleep apnea (adult) (pediatric) (principal) | CPT/HCPCS: 95811 ==

== ENCOUNTER 2022-09-02 09:32 | Emergency (ER) | payer BC ==
[~2022-09-02] VITALS: Ht 167.6 cm; Wt 99.3 kg
[2022-09-02 09:37] VITALS: O2SAT 99
[2022-09-02] MEDS ORDERED: KETOROLAC TROMETHAMINE 30 MG/ML VIAL IM STA (09:40)
[2022-09-02] MEDS ORDERED: HYDROCODONE/APAP 7.5MG-325MG 1 EA TAB PO STA (09:40)
[2022-09-02] MEDS ORDERED: ULTRAM 50MG50 MG PO (10:39)
== END 2022-09-02 10:44 | disposition home or self-care (01) ==
LOC: ER 09:43
DX: M25.562 Pain in left knee (principal); Y93.B9 Activity, other involving muscle strengthening exercises
CPT/HCPCS: 73562; 99283; J1885

== ENCOUNTER 2024-08-06 15:02 | Emergency (ER) | payer BC ==
[~2024-08-06] VITALS: Ht 167.6 cm; Wt 95.3 kg
[~2024-08-06 15:02] MED LIST changes: -COVID-19 VACC, MRNA(MODERNA)/PF 100 MCG/0.5 ML VIAL IM ONE; +ULTRAM 50MG50 MG PO
[2024-08-06 15:15] VITALS: TEMP 98.3
[2024-08-06 16:47] VITALS: PULSE 78; RESP 18; O2SAT 100
== END 2024-08-06 17:45 | disposition home or self-care (01) ==
LOC: ER 15:15
DX: R42 Dizziness and giddiness (principal); R51.9 Headache, unspecified; R11.0 Nausea; I10 Essential (primary) hypertension
CPT/HCPCS: 70450; 99282

== ENCOUNTER 2024-08-15 10:07 | Emergency (ER) | payer BC ==
[~2024-08-15] VITALS: Ht 167.6 cm; Wt 95.3 kg
[2024-08-15 10:15] VITALS: TEMP 97.5
[2024-08-15] MEDS ORDERED: CEFDINIR300 MG PO (10:25)
[2024-08-15] MEDS ORDERED: LISINOPRIL20 MG PO (10:25)
[2024-08-15] MEDS: MECLIZINE HCL 12.5 MG TAB PO ONE (11:55)
[2024-08-15] MEDS: SODIUM CHLORIDE 0.9% 1000ML 1,000 ML IV STA (11:56)
[2024-08-15 12:19] LABS: BASOPHILS % 0.1 % (0.0-1.0); EOSINOPHILS % 0.4 % (0.0-6.0); HEMATOCRIT 45.4 % (38.2-49.6); LYMPHOCYTES # (AUTO) 1.8 (1.0-3.2); LYMPHOCYTES % 17.7 % (18.0-39.1); MEAN CORPUSCULAR HEMOGLOBIN 27.6 pg (28-32); MEAN CORPUSCULAR VOLUME 83.5 fL (81-99); MONOCYTES # (AUTO) 0.8 (0.2-0.8); MONOCYTES % 7.7 % (4.4-11.3); NEUTROPHILS # (AUTO) 7.5 (2.1-6.9); NEUTROPHILS % 73.8 % (38.7-80.0); PLATELET COUNT 355 x10e3/uL (140-360); RED BLOOD COUNT 5.44 x10e6/uL (4.3-5.7); WHITE BLOOD COUNT 10.18 x10e3/uL (4.8-10.8)
[2024-08-15 12:25] LABS: BILIRUBIN,URINE NEGATIVE (NEGATIVE); CLARITY,URINE CLOUDY (CLEAR); COLOR,URINE YELLOW (YELLOW); GLUCOSE, URINE NEGATIVE (NEGATIVE); KETONES,URINE NEGATIVE (NEGATIVE); LEUKOCYTE ESTERASE ,URINE NEGATIVE (NEGATIVE); NITRITE,URINE NEGATIVE (NEGATIVE); PH,URINE 7 (5 - 7); PROTEIN,URINE DIPSTICK NEGATIVE (NEGATIVE); URINE UROBILINOGEN 0.2 mg/dL (0.2 - 1)
[2024-08-15 12:30] LABS: BACTERIA,URINE FEW /HPF; EPITHELIAL CELLS,URINE RARE /LPF; RBC,URINE 0-5 /HPF (0-5); WBC,URINE (MAN) 0-5 /HPF (0-5)
[2024-08-15 12:45] LABS: INR 0.92; PROTHROMBIN TIME 12.9 seconds (11.9-14.5)
[2024-08-15 12:46] LABS: PARTIAL THROMBOPLASTIN TIME 28.2 seconds (23.8-35.5)
[2024-08-15 13:08] LABS: ALANINE AMINOTRANSFERASE 16 IU/L (0-55); ALBUMIN 4.2 g/dL (3.5-5.0); ALBUMIN/GLOBULIN RATIO 1.2 (0.8-2.0); ALKALINE PHOSPHATASE 85 IU/L (40-150); ANION GAP 15.2 mmol/L (8-16); BILIRUBIN,TOTAL 0.5 mg/dL (0.2-1.2); BLOOD UREA NITROGEN 15 mg/dL (7-26); BUN/CREATININE RATIO 17 (6-25); CALCIUM 9.2 mg/dL (8.4-10.2); CARBON DIOXIDE 26 mmol/L (22-29); CHLORIDE 106 mmol/L (98-107); CREATINE KINASE 131 IU/L (30-200); CREATININE, SERUM 0.88 mg/dL (0.72-1.25); EST GLOMERULAR FILTRATION RATE 109 ML/MIN (>=60); GLUCOSE 92 mg/dL (74-118); MAGNESIUM 2.2 MG/DL (1.3-2.1); POTASSIUM 4.2 mmol/L (3.5-5.1); SODIUM 143 mmol/L (136-145); TOTAL PROTEIN 7.6 g/dL (6.5-8.1)
[2024-08-15 13:28] LABS: THYROID STIMULATING HORMONE 0.871 uIU/mL (0.350-4.940)
[2024-08-15 13:30] LABS: TROPONIN I < 0.001 ng/mL (0-0.300)
[2024-08-15 14:06] VITALS: PULSE 80; RESP 16
[2024-08-15 15:44] VITALS: BP 128/99; PULSE 74; RESP 16; TEMP 98.3; O2SAT 99
== END 2024-08-15 15:50 | disposition home or self-care (01) ==
LOC: ER 11:25
DX: R42 Dizziness and giddiness (principal); I10 Essential (primary) hypertension; R94.31 Abnormal electrocardiogram [ECG] [EKG]
CPT/HCPCS: 36415; 70450; 71045; 80053; 81001; 82550; 83735; 84443; 84484; 85025; 85610; 85730; 93005; 99284; J7030; J8597

== ENCOUNTER 2024-12-07 21:32 | Emergency (ER) | payer BC ==
[~2024-12-07] VITALS: Ht 167.6 cm; Wt 93.0 kg
[~2024-12-07 21:32] MED LIST changes: +CEFDINIR300 MG PO; +LISINOPRIL20 MG PO
[2024-12-07] MEDS: LIDOCAINE 4% PATCH TP STA (22:06)
[2024-12-07] MEDS: KETOROLAC TROMETHAMINE 30 MG/ML VIAL IM STA (22:06)
[2024-12-07] MEDS: DEXAMETHASONE 4 MG TAB PO STA (22:06)
[2024-12-07] MEDS: CYCLOBENZAPRINE HCL 10 MG TAB PO ONE (22:06)
[2024-12-07] MEDS: ACETAMINOPHEN 325 MG TAB PO ONE (22:07)
[2024-12-07 22:36] LABS: LEUKOCYTE ESTERASE ,URINE NEGATIVE (NEGATIVE); PROTEIN,URINE DIPSTICK NEGATIVE (NEGATIVE); URINE UROBILINOGEN 2.0 mg/dL (0.2 - 1)
[2024-12-07 22:46] LABS: EPITHELIAL CELLS,URINE FEW /LPF; WBC,URINE (MAN) 0-5 /HPF (0-5)
[2024-12-07] MEDS ORDERED: KETOROLAC TROME10 MG PO (23:39)
[2024-12-07] MEDS ORDERED: FLOMAX0.4 MG PO (23:41)
[2024-12-07] MEDS ORDERED: ONDANSETRON ODT4 MG PO (23:41)
[2024-12-08] MEDS ORDERED: ULTRAM 50MG50 MG PO (00:25)
[2024-12-08 00:30] VITALS: PULSE 77; RESP 16; TEMP 97.9; O2SAT 97
== END 2024-12-08 00:36 | disposition home or self-care (01) ==
LOC: ER 21:36
DX: M54.50 Low back pain, unspecified (principal); R10.9 Unspecified abdominal pain
CPT/HCPCS: 74176; 81001; 99284; J1885; J8540